=== PATIENT | female | born 1955 | race African-American/Black ===

== ENCOUNTER 2016-11-02 18:01 | Emergency (ER) | payer OTHER ==
[2016-11-02 18:05] VITALS: BP 127/89; PULSE 68; TEMP 98.4; BMI 50.7
--- NOTE | 2016-11-02 20:34 | PDOC ---
History of Present Illness - General History Source: Patient Exam Limitations: No Limitations - History of Present Illness Initial Comments: 11/02/16 20:39 The patient is a 61 year old female with significant past medical history of hypertension who presents to the ED for 4 days of abdominal pain. Patient describes pain as a burning sensation in the epigastric region that is nonradiating. She reports associated nausea and constipation, but no vomiting or diarrhea. She also has complaints of decreased appetite. + sick contacts, states her mom is also ill with similar symptoms. The patient denies fever, chills, cough, SOB, chest pain, and palpitations. The patient denies dysuria, hematuria, urgency, and frequency. Allergies: NKDA Social History: No alcohol, tobacco, or drug use reported. Past Surgical History: hysterectomy, breast reduction PCP: Dr. Avelino Leary <Shanelle Alcaraz - Last Filed: 11/02/16 20:39> - General History Source: Patient <Parth Torres - Last Filed: 11/03/16 19:27> - General Chief Complaint: Pain Stated Complaint: STOMACH PAIN Time Seen by Provider: 11/02/16 20:29 Past History <Shanelle Alcaraz - Last Filed: 11/02/16 20:39> - Past Medical History HTN: Yes - Psycho/Social/Smoking Cessation Hx Anxiety: No Suicidal Ideation: No Smoking History: Never smoked Substance Use Type: None <Parth Torres - Last Filed: 11/03/16 19:27> - Past Medical History Allergies/Adverse Reactions: Allergies Allergy/AdvReac Type Severity Reaction Status Date / Time No Known Allergies Allergy Verified 11/02/16 18:05 Home Medications: Ambulatory Orders Pantoprazole Sodium [Protonix] 40 mg PO DAILY #30 tablet. 11/02/16 Review of Systems - Review of Systems Able to Perform ROS?: Yes Comments:: 11/02/16 20:39 CONSTITUTIONAL: Absent: fever, no chills, no fatigue EYES: Absent: visual changes ENT: Absent: ear pain, no sore throat CARDIOVASCULAR: Absent: chest pain, no palpitations RESPIRATORY: Absent: cough, no SOB GI: +epigastric burning, nausea, constipation Absent: no vomiting, no diarrhea GENITOURINARY: Absent: dysuria, no frequency, no hematuria MUSCULOSKELETAL: Absent: back pain, no arthralgia, no myalgia SKIN: Absent: rash NEURO: Absent: headache <Shanelle Alcaraz - Last Filed: 11/02/16 20:39> *Physical Exam - Vital Signs Last Vital Signs Temp Pulse Resp BP Pulse Ox 98.4 F 68 20 127/89 100 11/02/16 18:02 11/02/16 18:02 11/02/16 18:02 11/02/16 18:02 11/02/16 18:02 - Physical Exam Comments: 11/02/16 20:39 GENERAL: Well-appearing, well-nourished. No apparent distress. HEENT: Normocephalic, atraumatic. PERRL, EOM intact. CARDIOVASCULAR: Normal S1, S2. Regular rate and rhythm. PULMONARY: Clear to auscultation bilaterally. ABDOMEN: Obese. Soft. Mild epigastric tenderness. Non-distended. No rebound or guarding. No organomegaly. Normoactive bowel sounds. EXTREMITIES: Normal ROM in all four extremities. No gross deformities. SKIN: Warm, dry. No rash NEUROLOGICAL: No focal neurological deficits. <Shanelle Alcaraz - Last Filed: 11/02/16 20:39> - Vital Signs Last Vital Signs Temp Pulse Resp BP Pulse Ox 98.4 F 68 20 127/89 100 11/02/16 18:02 11/02/16 18:02 11/02/16 18:02 11/02/16 18:02 11/02/16 18:02 <Parth Torres - Last Filed: 11/03/16 19:27> ED Treatment Course - LABORATORY CBC & Chemistry Diagram: 11/02/16 20:45 11/02/16 20:45 <Parth Torres - Last Filed: 11/03/16 19:27> Medical Decision Making - Medical Decision Making 11/03/16 19:27 Dr. Torres: The scribe's documentation has been prepared under my direction and personally reviewed by me in its entirery. I confirm that the note above accurately reflects all work, treatment, procedures, and medical decision making performed by me. <Parth Torres - Last Filed: 11/03/16 19:27> *DC/Admit/Observation/Transfer - Attestations Scribe Attestion: 11/02/16 20:39 Documentation prepared by Shanelle Alcaraz, acting as emergency medical technician for Parth Torres DO. <Shanelle Alcaraz - Last Filed: 11/02/16 20:39> - Discharge Dispostion Admit: No <Parth Torres - Last Filed: 11/03/16 19:27> Diagnosis at time of Disposition: Abdominal pain Qualifiers: Abdominal location: epigastric Qualified Code(s): R10.13 - Epigastric pain GERD (gastroesophageal reflux disease) Qualifiers: Esophagitis presence: esophagitis presence not specified Qualified Code(s): K21.9 - Gastro-esophageal reflux disease without esophagitis - Discharge Dispostion Disposition: HOME - Prescriptions Prescriptions: Pantoprazole Sodium [Protonix] 40 mg PO DAILY #30 tablet.dr - Referrals Referrals: Avelino Leary MD [Primary Care Provider] - Alicia Tamayo MD [Staff Physician] - - Patient Instructions Printed Discharge Instructions: GERD Diet, DI for Gastroesophageal Reflux Disease (GERD) Additional Instructions: Please follow up with your doctor or the doctor referred for further evaluation. - Post Discharge Activity Work/School Note: Back to Work
[2016-11-02] MEDS ORDERED: PANTOPRAZOLE 40 MG TABLET (FP) PO ONE (20:35)
[2016-11-02 20:54] LABS: BASOPHIL 0.6 % (0-2.0); EOSINOPHIL 2.4 % (0-4.5); MCH 27.8 pg (25.7-33.7); MCHC 32.7 g/dl (32.0-36.0); MEAN CELL VOLUME 85.1 fl (80-96); MEAN PLT VOLUME 8.4 fl (7.5-11.1); PLATELET COUNT 241 K/MM3 (134-434); RDW 15.3 % (11.6-15.6); WHITE BLOOD COUNT 5.6 K/mm3 (4.0-10.0)
[2016-11-02] MEDS ORDERED: PANTOPRAZOLE 40 MG TABLET (FP) ONE (21:00)
[2016-11-02 21:19] LABS: ALBUMIN 3.6 g/dl (3.4-5.0); ANION GAP 8 (8-16); BILIRUBIN,TOTAL 0.4 mg/dL (0.2-1.0); CALCIUM 8.8 mg/dL (8.5-10.1); CO2 28 mmol/L (21-32); CREATININE 0.7 mg/dL (0.55-1.02); GLUCOSE,RANDOM 96 mg/dL (74-106); SGOT/AST 8 U/L (15-37); SGPT/ALT 23 U/L (12-78); TOT PROT 6.9 g/dl (6.4-8.2)
[2016-11-02 21:22] LABS: ALK PHOS 97 U/L (45-117); CPK 116 IU/L (26-192); TROPONIN I < 0.02 ng/ml (0.00-0.05)
[2016-11-02 21:26] LABS: AMYLASE 32 U/L (25-115)
[2016-11-02 21:52] LABS: URINE APPEARANCE SLCLOUDY; URINE BILIRUBIN NEGATIVE (NEGATIVE); URINE BLOOD 1+ (NEGATIVE); URINE COLOR LTYELLOW; URINE GLUCOSE (UA) NEGATIVE (NEGATIVE); URINE KETONE TRACE (NEGATIVE); URINE LEUK ESTERASE NEGATIVE (NEGATIVE); URINE NITRITE NEGATIVE (NEGATIVE); URINE PROTEIN NEGATIVE (NEGATIVE); URINE UROBILINOGEN NEGATIVE mg/dL (0.2-1.0)
[2016-11-02] MEDS ORDERED: SUCRALFATE 1 GM TABLET (FP) PO STA (21:52)
[2016-11-02 21:54] LABS: URINE BACTERIA RARE /hpf (NONE SEEN); URINE MUCUS RARE; URINE RBC <1 /hpf (0-3); URINE WBC 3 /hpf (3-5)
[2016-11-02] MEDS ORDERED: SUCRALFATE 1 GM TABLET (FP) ONE (22:09)
== END 2016-11-02 23:36 | disposition home or self-care (01) ==
LOC: JER 18:01
DX: K21.9 Gastro-esophageal reflux disease without esophagitis (principal); R10.13 Epigastric pain; I10 Essential (primary) hypertension
CPT/HCPCS: 36415; 76705-TC; 80053; 81003; 81015; 82150; 83690; 83735; 84484; 85025; 99282-25